=== PATIENT | female | born 1985 | race Caucasian/White ===

== ENCOUNTER 2023-05-26 10:41 | Inpatient (IN) | payer OTHER ==
[~2023-05-26] VITALS: Ht 161.9 cm; Wt 90.1 kg
[2023-05-26 11:00] LABS: BILIRUBIN,URINE NEGATIVE (Neg); CLARITY,URINE CLOUDY (Clear); COLOR,URINE YELLOW (Yellow); GLUCOSE, URINE NEGATIVE (Neg); KETONES,URINE NEGATIVE (Neg); LEUKOCYTE ESTERASE ,URINE NEGATIVE (Neg); NITRITES, URINE NEGATIVE (Neg); OCCULT BLOOD,URINE NEGATIVE (Neg); PH,URINE 5.5 (4.8-8.0); PROTEIN,URINE NEGATIVE (Neg); UROBILINOGEN,URINE 0.2 E.U/dL (0.2-1.0)
[2023-05-26 11:02] LABS: URINE HCG NEGATIVE (NEG)
[2023-05-26 11:06] LABS: BASOPHILS # (AUTO) 0.1 X10'3 (0-0.2); BASOPHILS % (AUTO) 0.8 % (0-1); EOSINOPHILS # (AUTO) 0.1 X10'3 (0-0.9); EOSINOPHILS % (AUTO) 0.9 % (0-6); HEMATOCRIT 40.9 % (35.0-45.0); HEMOGLOBIN 13.6 g/dl (12.0-16.0); LYMPHOCYTES # (AUTO) 1.5 X10'3 (1.1-4.8); MEAN CORPUSCULAR HGB CONC 33.4 g/dL (33.0-36.5); MEAN PLATELET VOLUME 9.5 FL (7.4-10.4); MONOCYTES # (AUTO) 0.6 X10'3 (0-0.9); MONOCYTES % (AUTO) 7.6 % (2-12); NEUTROPHILS # (AUTO) 5.7 X10'3 (1.8-7.7); NEUTROPHILS % (AUTO) 71.7 % (42-75); PLATELET COUNT 263 X10'3 (140-440); RED BLOOD COUNT 4.87 X10'6 (4.20-5.60); RED CELL DISTRIBUTION WIDTH 14.8 % (11.5-14.5)
[2023-05-26 11:06] LABS: MUCUS STRANDS MANY /LPF (Neg); SQUAMOUS EPITHELIAL CELL,UR MANY /LPF (FEW); UA COLLECTION TYPE CLN CATCH MIDSTREAM
[2023-05-26 11:07] LABS: BACTERIA,URINE 1+ /HPF (Neg); RBC,URINE 0-2 /HPF (0-2); WBC,URINE 0-4 /HPF (0-4)
[2023-05-26 11:49] LABS: ALANINE AMINOTRANSFERASE 60 U/L (12-78); ALBUMIN 3.8 G/DL (3.4-5.0); ALKALINE PHOSPHATASE 79 IU/L (46-116); ANION GAP 11 (8-16); ASPARTATE AMINO TRANSFERASE 32 U/L (10-37); BILIRUBIN,TOTAL 0.3 MG/DL (0.1-1.0); BLOOD UREA NITROGEN 10 MG/DL (7-18); BUN/CREATININE RATIO 11.1 (10.0-20.0); CALCIUM 8.8 MG/DL (8.5-10.1); CHLORIDE 105 MMOL/L (99-107); GLUCOSE 89 MG/DL (70-104); LIPASE 29 U/L (16-77); POTASSIUM 3.7 MMOL/L (3.5-5.1); SODIUM 138 MMOL/L (135-145); TOTAL CARBON DIOXIDE 22.3 MMOL/L (24-32); TOTAL PROTEIN 7.7 G/DL (6.4-8.2); eCRCL 71 ML/MIN; eGFR 71 ML/MIN
[2023-05-26 13:14] LABS: HCG SERUM QL NEGATIVE
[2023-05-26] MEDS ORDERED: normal saline 1000ML IV soln IVB ONE (16:50)
[2023-05-26] MEDS ORDERED: ondansetron 4mg rapidly disintigrating tab PO ONE (16:50)
[2023-05-26] MEDS ORDERED: ketorolac trometh. 30mg/ml inj. IV ONE (16:50)
[2023-05-26] MEDS ORDERED: acetaminophen 325mg tablet PO ONE (16:50)
[2023-05-26] MEDS ORDERED: ondansetron/PF 4mg/2ml inj IV ONE (16:55)
[2023-05-26] MEDS ORDERED: magnesium 4gm in 100ml NS 100 ML IV PRN (17:40)
[2023-05-26] MEDS ORDERED: potassium Cl 40MEQ/1/2NS 520ml 520 ML IV PRN (17:40)
[2023-05-26] MEDS ORDERED: ondansetron/PF 4mg/2ml inj IV PRN (17:40)
[2023-05-26] MEDS ORDERED: potassium Cl 20 mEq SR tablet PO PRN ×2 (17:40)
[2023-05-26] MEDS ORDERED: magnesium 2GM in 50ml NS 50 ML IV PRN (17:40)
[2023-05-26] MEDS ORDERED: magnesium Cl slow-release 64mg tablet PO PRN (17:40)
[2023-05-26] MEDS ORDERED: acetaminophen 325mg tablet PO PRN ×2 (17:40→18:10)
[2023-05-26] MEDS ORDERED: AMOX-101 PO (17:46)
[2023-05-26] MEDS ORDERED: OXYC-145 PO (17:46)
[2023-05-26] MEDS ORDERED: HYDROcodone/acetaminophen 10/325mg tab PO PRN (18:10)
[2023-05-26] MEDS ORDERED: morphine 2 MG/ML inj. syringe IV PRN ×2 (18:10)
[2023-05-26] MEDS ORDERED: HYDROcodone/acetaminophen 5mg/325mg tablet PO PRN (18:10)
[2023-05-26] MEDS: dextrose 5%-1/2 normal saline 1,000 ML IV SCH (18:29)
[2023-05-26] MEDS: pantoprazole 40mg Tablet.DR PO SCH (18:42)
[2023-05-26] MEDS: K and/or MAG REPLACEMENT MC SCH (18:45)
[2023-05-26 22:50] VITALS: BP 119/69; PULSE 71; RESP 18; TEMP 97.7; O2SAT 71; O2SAT 97
[2023-05-27] VITALS (13 sets, daily range): BP systolic 88–114; BP diastolic 54–80; PULSE 67–92; RESP 12–18; TEMP 97.1; O2SAT 92–98
[2023-05-27] MEDS: piperacillin/tazo 4.5gm/100ml 100 ML IV SCH ×2 (00:51→08:04)
[2023-05-27] MEDS: dextrose 5%-1/2 normal saline 1,000 ML IV SCH (00:52)
[2023-05-27] MEDS ORDERED: BUPIVAcaine 2.5mg/ml inj 50ml vial (contains preservative) ONE (06:50)
[2023-05-27] MEDS: K and/or MAG REPLACEMENT MC SCH (07:02)
[2023-05-27] MEDS: pantoprazole 40mg Tablet.DR PO SCH (07:54)
[2023-05-27] MEDS ORDERED: morphine 2 MG/ML inj. syringe IV PRN (08:15)
[2023-05-27] MEDS ORDERED: hydrALAZINE 20mg/ml inj. IV PRN (08:15)
[2023-05-27] MEDS ORDERED: morphine 4 MG/ML inj SYRINge IV PRN (08:15)
[2023-05-27] MEDS ORDERED: ondansetron/PF 4mg/2ml inj IV PRN (08:15)
[2023-05-27] MEDS ORDERED: ringers solution, lacted 1,000 ML IV SCH (08:15)
[2023-05-27] MEDS ORDERED: fentaNYL/PF 50MCG/1 ML 2ML syringe IV PRN ×2 (08:15)
[2023-05-27] MEDS ORDERED: labetalol 20mg/4ml (5mg/ml) syringe IV PRN (08:15)
[2023-05-27] MEDS ORDERED: propofol inj 20 ML IV ONE (09:07)
[2023-05-27] MEDS ORDERED: dexamethasone sod phosphate 4mg/ml inj. ONE (09:07)
[2023-05-27] MEDS ORDERED: LIDOcaine 2% (20mg/ml) 5ml vial ONE (09:07)
[2023-05-27] MEDS ORDERED: glycopyrrolate 0.2mg/ml inj ONE (09:07)
[2023-05-27] MEDS ORDERED: ondansetron/PF 4mg/2ml inj ONE (09:07)
[2023-05-27] MEDS ORDERED: neostigmine methylsulfate 1 MG/ML 10ml vial ONE (09:07)
[2023-05-27] MEDS ORDERED: rocuronium 10mg/ml inj IV ONE (09:07)
[2023-05-27] MEDS ORDERED: midazolam 1 mg/ML 2ml injection ONE (09:08)
[2023-05-27] MEDS ORDERED: fentaNYL/PF 50MCG/1 ML 2ML syringe ONE (09:08)
[2023-05-27] MEDS ORDERED: BUPIVAcaine 2.5mg/ml inj 50ml vial (contains preservative) SQ ONE (09:47)
== END 2023-05-27 15:30 | disposition home or self-care (01) | DRG 419 ==
LOC: ER 10:42 → ED HOLD 17:45 → UNDOADMIN 17:45 → ED HOLD 18:45 → ORTHO 4S 21:55
PROVIDERS: ADMIT Internal Medicine; ATTEND Internal Medicine
PROC: 0FT44ZZ Resection of Gallbladder, Percutaneous Endoscopic Approach (ICD-10-PCS; principal; 2023-05-27 09:17)
DX: K80.00 Calculus of gallbladder with acute cholecystitis without obstruction (principal); F32.A Depression, unspecified; F41.9 Anxiety disorder, unspecified
CPT/HCPCS: 36415; 76700; 80053; 81001; 81025; 82948; 83605; 83690; 84703; 85025; 87040; 87081; 99285; A4215; A4615; A4618; A6449; A7000; G0378; J1100; J1885; J2250; J2270; J2405; J2543; J2704; J2710; J3010; J3490; J7030; J7120